=== PATIENT | female | born 1995 | race Caucasian/White ===

== ENCOUNTER → 2016-05-06 | Outpatient (CLI) | payer BC, MEDICAID | LOC: RAD 09:08 | PROVIDERS: ATTEND Family Medicine | DX: O26.843 Uterine size-date discrepancy, third trimester (principal); Z3A.32 32 weeks gestation of pregnancy | CPT/HCPCS: 76805 ==

== ENCOUNTER 2016-05-21 05:09 | Inpatient (IN) | payer BC, MEDICAID ==
[2016-05-21] VITALS (26 sets, daily range): BP systolic 95–126; BP diastolic 50–78
[~2016-05-21] VITALS: Ht 154.9 cm; Wt 50.0 kg
[2016-05-21] MEDS ORDERED: OXYTOCIN INJ 20 UNIT in NS 1000ml 1,000 ML IV PRN (05:16)
[2016-05-21] MEDS ORDERED: MISOPROSTOL 25 MCG (CYTOTEC) TABLET PV SCH (05:20)
[2016-05-21] MEDS ORDERED: SODIUM CHLORIDE FLUSH 10 ML SYR IV PRN (05:20)
--- OUTSIDE RECORDS SUMMARY | 2016-05-21 05:27 | XMS REPORT ---
Author Author Bhavya Everett Organization [employer] Address Unknown Phone Unavailable Care Team Providers Care Weather Anchor Name Role Phone Bhavya Everett CP Unavailable Allergies No Known Allergies Problems Problem Type Condition Code Onset Dates Condition Status Assessment Major depressive disorder, recurrent episode, moderate 296.32 Active Problem Major depressive disorder, recurrent episode, moderate 296.32 Active Medications No Known Medications Procedures Procedure Coding System Code Date ([facility]) Care coordination CARMEL CPT-4 S0281 June 13, 2014 Results No Known Results Summary Purpose [employer] Submission
[2016-05-21] MEDS: CALCIUM CARBONATE CHEWABLE 300 MG (TUMS) TABLET PO PRN ×2 (05:52→13:49)
[2016-05-21 05:56] LABS: MEAN CORPUSCULAR HEMOGLOBIN 28.5 PG (26.0-34.0); MEAN CORPUSCULAR HGB CONC 33.3 g/dL (31.0-37.0); MEAN PLATELET VOLUME 11.5 FL (6.0-9.5); WHITE BLOOD COUNT 11.72 10^3uL (4.0-11.0)
[2016-05-21] MEDS ORDERED: CALC300T4 PO (06:37)
[2016-05-21] MEDS ORDERED: PREN1TAB79 PO (06:37)
--- NOTE | 2016-05-21 08:30 | History and Physical (E) ---
History & Physical (OB) Subjective: CC: induction 21 year old at 37 0/7 WGA presents for induction secondary to IUGR. She was found to measure small at 34 week visit, and had an ultrasound that placed baby at the 2nd percentile. Follow up ultrasound earlier this week at Dr. Ng 's office showed weight at 5th percentile, and she recommended delivery at 37 weeks for IUGR. The has otherwise been complicated by history of asthma and migraines (no issue during this ) and chlamydia in the first trimester. PNC: Dr. Monge, then transfer to Dr. Malin at 18 weeks OB Hx: at 38 weeks PMHx: Asthma with no inhaler use for four years, migraines, IBS PSHx: FOB Jose. Works at [employer]. Tobacco use prior to preg, but not during. No alcohol or ILD. Allergies: Coded Allergies: nystatin (Verified Allergy, Unknown, 05/21/16) Home Medications: Reported Medications Calcium Carbonate (Tums)300 Mg Tab.[id number] Mg PO NEEDED 05/21/16 Vits W-Ca,Fe,Fa(<1MG) ( Vitamins)1 Each Tablet1 Each PO DAILY 05/21/16 Objective: Vital Signs Date Time Temp Pulse Resp B/P Pulse Ox O2 Delivery O2 Flow Rate FiO2 05/21/16 06:00 85 16 110/67 Laboratory Results Past 24 Hrs 05/21/16 05:30: Hematocrit 35.10, Hemoglobin 11.7, Mean Corpuscular Hemoglobin 28.5, Mean Corpuscular Hemoglobin Concent 33.3, Mean Corpuscular Volume 85, Mean Platelet Volume 11.5, Platelet Count 268, Red Blood Count 4.11, Red Cell Distribution Width 12.7, White Blood Count 11.72 General: Alert and oriented, NAD Chest: CTA Abdomen: Gravid Cardiovasular: RRR, No murmur Extremities: No edema FHT's: 130s, moderately reactive, no accels or decels. Cat I. Cx: 1.5/70/-3 vertex, head well applied Elnora: q4min Screenings: Blood type: O Positive, Rubella Immune, RPR non-reactive, HBV Negative, HIV Negative , GBS Negative. Problems/Plans: (1) with 37 weeks completed gestation Assessment & Plan: 1st dose of cytotec placed at 6am, with contractions getting started and effacement since check in the office yesterday. Will recheck at 10am, and pending that may do another dose of cytotec vs start pitocin. (2) IUGR (intrauterine growth restriction) (3) Asthma Assessment & Plan: Avoid hemabate. Additional Copies to: End of Report . AUSTIN MALIN MD May 21, 2016 08:30
[2016-05-21] MEDS ORDERED: OXYTOCIN INJ 20 UNIT in NS 1000ml 1,000 ML SCH (10:40)
[2016-05-21] MEDS ORDERED: OXYTOCIN INJ 20 UNIT in NS 1000ml 1,000 ML IV SCH (11:30)
[2016-05-21] MEDS ORDERED: ROPIVACAINE 1% 10 MG/ML (NAROPIN) 20 ML AMPUL ONE (12:42)
[2016-05-21 13:33] LABS: BILIRUBIN,URINE Negative (Negative); CLARITY,URINE Clear; COLOR,URINE Yellow; GLUCOSE, URINE (UA) Negative (Negative); LEUKOCYTE ESTERASE ,URINE Negative (Negative); UROBILINOGEN,URINE 0.2 mg/dL (0.2-1.0)
[2016-05-21] MEDS ORDERED: CALCIUM CARBONATE CHEWABLE 300 MG (TUMS) TABLET PO PRN (16:00)
[2016-05-21] MEDS ORDERED: LANOLIN OINTMENT 28 GM TUBE TOP PRN (17:30)
[2016-05-21] MEDS ORDERED: HYDROcodone/APAP 5 MG/325 MG (NORCO) TAB PO PRN (17:30)
--- NOTE | 2016-05-21 17:44 | Vaginal Delivery Summary (E) ---
Vaginal Delivery Summary At 17:02 on 05/21/16 this 21 year old G 2 now P2 spontaneously delivered a viable female at 37 0/7 weeks gestation. The patient presented for care at [address] Monge and ultrasound at that time established dates. She transferred care to mo at 18 weeks. This complications: IUGR, history of asthma and migraine, chlamydia in the first trimester. Maternal labs: Blood type: O Positive, Hgb 13.8, Rubella Immune, RPR non- reactive, HBV Negative, HIV Negative , GBS Negative. Tdap booster received on 2016. Flu booster received on 03/16/16. She presented for induction secondary to IUGR. At presentation, she was 1 cm dilated. A 25mcg dose of cytotec was placed, and she started to have contractions and slight advancement of dilation. Pitocin was then started, with max dose of 2mu. Epidural was placed at 12:40, with good pain relief. She progressed to complete at 16:50. I performed AROM with Allis clamp just as she started pushing with clear fluid returned. She pushed for approximately 1 minute. The head presented occiput anterior and delivered easily, followed by the anterior shoulder. A loose nuchal cord x1 was reduced. The posterior shoulder and the body followed in a controlled fashion and baby was placed on mom's abdomen. The placenta delivered immediately after baby. The cord was then clamped x2 by me and cut by father of the baby. The pitocin bag was run in. There were no lacerations. Estimated blood loss 50 ml. weight: 5 pounds, 1 ounces, 2310 grams. Apgars: 8 at 1 minute, 8 at 5 minutes, and 8 at 10 minutes. Baby's color was pale after delivery, so O2 sat was placed, and sats were 97-99 % with good respiratory effort and equal breath sounds. She likely has a low hematocrit contributing to her pale color as an effect of her IUGR. Will continue to monitor. Initial glucose is 64. Both mom and baby are stable at this time. AUSTIN BREWER MD May 21, 2016 17:44
[2016-05-21] MEDS: IBUPROFEN 600 MG (MOTRIN) TAB PO PRN (21:34)
[2016-05-21] MEDS: DOCUSATE SODIUM 100 MG (COLACE) CAP PO SCH (21:34)
[2016-05-22] MEDS: IBUPROFEN 600 MG (MOTRIN) TAB PO PRN ×2 (07:15→13:49)
--- NOTE | 2016-05-22 08:30 | NUR ---
Mother states that she plans feeing formula in hospital and pump once she is home. Encourage mother to start pumping while in the hospital to help her supply and can feed what she pumps to infant. Also encouraged mother to try again today. Mother set up with breast pump and educated on use.
[2016-05-22 08:53] VITALS: BP 122/80
--- NOTE | 2016-05-22 12:20 | Progress Note (E) ---
Post- Progress Note Subjective: Doing well. Some struggles with nursing, baby is not sucking well. Supplemented last night, but got a good feeding session this morning. Ambulating, voiding. Pain controlled. Lochia decreasing. Objective: Vital Signs Date Time Temp Pulse Resp B/P Pulse Ox O2 Delivery O2 Flow Rate FiO2 05/22/16 08:53 98.1 67 18 122/80 97 Room air I & O 05/21/16 05/22/16 18:59 06:59 Intake Total 118 ml Balance 118 ml Laboratory Tests 05/21/16 13:20: Urine Bilirubin Negative, Urine Blood Negative, Urine Clarity Clear, Urine Collection Type Catheter, Urine Color Yellow, Urine Glucose (UA) Negative, Urine Ketones 2+, Urine Leukocyte Esterase Negative, Urine Nitrite Negative, Urine Protein Negative, Urine Specific [place] 1.020, Urine Urobilinogen 0.2, Urine pH 7.0 05/22/16 07:10: Hematocrit 31.70, Hemoglobin 10.4 Blood type: O Positive, Current Medications Ibuprofen 600 mg Q6H PRN PO Last administered on 05/22/16 07:15; Admin Dose 600 MG; Start 05/21/16 at 17:30 Docusate Sodium 100 mg HS PO Last administered on 05/21/16 21:34; Admin Dose 100 MG; Start 05/21/16 at 21:00 Acetaminophen/ Hydrocodone Bitart 1-2 TABS Q4H PRN PO; Start 05/21/16 at 17:30 General: Alert and oriented, NAD Abdomen: Soft, non-distended, fundus firm Extremities: No edema Problems/Plans: (1) (spontaneous vaginal delivery) Assessment & Plan: Plan discharge tomorrow. Continue to work on nursing. AUSTIN BREWER MD May 22, 2016 12:20
[2016-05-22] MEDS ORDERED: IBUP-1772 PO (12:21)
[2016-05-22 20:00] VITALS: BP 110/70
--- NOTE | 2016-05-22 20:15 | NUR ---
Infant waking and displaying hunger cues. Discussed how feedings have gone since delivery and what her ultimate goal is for feeding. Reviewed each intervention applied so far and offered SNS as option to facilitate continued supply and demand. Pt and FOB expressed concern about lack of milk supply at this time. Reviewed colostrum and milk supply development as well as stomach size. Plan of care for infant feeding this shift: SNS with small amounts of formula while and encourage feedings every 2-3 hours. placed at breast and latched quickly. Feeding tube inserted into infant's mouth while nursing and 12 mls formula given (6mls each breast). As formula was taken quickly, reinforced the importance of letting her nurse a while longer at each breast to facilitate milk production. Both patient and father of baby very attentive and expressed understanding of and agreement with plan of care. Pleased with 's feeding ability at this time. Reinforced that nursing latch and suck coordination just takes time.
[2016-05-22] MEDS: DOCUSATE SODIUM 100 MG (COLACE) CAP PO SCH (20:58)
--- NOTE | 2016-05-23 02:00 | NUR ---
Requests bottle for baby. Encouraged her to try and breastfeed but she chooses not to at this time. FOB feeds baby. Both attentive to the baby but tired.
--- NOTE | 2016-05-23 04:00 | NUR ---
Requests bottle. Encourage to breastfeed but chooses not to at this time. Recommended she should pump but chooses not to at this time.
--- NOTE | 2016-05-23 05:30 | NUR ---
Requests bottle. Baby crying inconsolably. Asked if she had checked diaper nad tried to console her in was other than feeding. Diaper clean and dry. Does not calm with swaddling/soothing. I asked her what she would do if she were home (breastfeed or bottlefeed) and she said she wasn't sure. Told her she could nurse in sidelying position and agrees to try. Infant continues to cry and not latch but calms when allowed to suck on gloved finger. Mother expresses colostrum and formula ddripped on to nipple as well. Baby latches quickly following this. Reinforced we support her decision for feeding regardless but with , supply and demand principle is so important early in establishing milk supply.
[2016-05-23 08:50] VITALS: BP 116/72
--- NOTE | 2016-05-23 09:45 | NUR ---
Dr Petit, covering for Dr Malin, in patient room assessing patient and . Dismissal instruction and education provided by Dr Petit.
--- NOTE | 2016-05-23 10:05 | Discharge Summary (E) ---
OB Discharge Summary Admit Date/Time May 21, 2016 at 05:23 Discharge Date/Time 05/23/16 Admitting Provider Martha Malin MD Primary Care Provider Martha Malin MD Attending Provider Martha Malin MD Consulting Provider Dr Jody Petit Procedures Admission Diagnosis Term induction for IUGR History and Present Illness See History and Physical for complete details. Hospital Course and Treatment See delivery note. Pain very well controlled with occasional use of Ibuprofen only. Bleeding less than menses. Nursing fine, supplementing with formula currently. Feeling ready for discharge. Discharge Physicial Exam General Alert and oriented, NAD Abdomen Soft, non-distended, fundus firm and below umbilicus. Extremities No edema Discharge Disposition Home Instructions Labor and delivery instruction and instructions given as handouts. Diet Discharge Medications New Medications: Ibuprofen (Ibuprofen) 600 Mg Tablet 600 MG PO Q6H PRN PAIN #30 TAB Continued Medications: Vits W-Ca,Fe,Fa(<1MG) ( Vitamins) 1 Each Tablet 1 EACH PO DAILY TAB Discontinued Medications: Calcium Carbonate (Tums) 300 Mg Tab.chew 300 MG PO NEEDED TAB.CHEW Follow up Follow up Referrals: Family Practice - Within 6 weeks with Martha Malin Md Discharge Diagnosis Problems/Plans: (1) (spontaneous vaginal delivery) Assessment & Plan: Doing well. Discharge home. See orders. Continue to work on nursing. Copies to: End of Report . JODY PETIT MD May 23, 2016 10:05
--- NOTE | 2016-05-23 10:20 | NUR ---
Discharge instructions reviewed with patient and FOB. Patient denies any further questions. Education provided. Discharge papers signed.
--- NOTE | 2016-05-23 10:35 | NUR ---
Patient discharged ambulatory status accompanied by FOB, infant, and this nurse. Patient escorted to POV.
== END 2016-05-23 10:35 | disposition home or self-care (01) | DRG 775 ==
LOC: OB 05:23
PROVIDERS: ADMIT Family Medicine; ATTEND Family Medicine
PROC: 10E0XZZ Delivery of Products of Conception, External Approach (ICD-10-PCS; principal; 2016-05-21)
PROC: 3E0P7GC Introduction of Other Therapeutic Substance into Female Reproductive, Via Natural or Artificial Opening (ICD-10-PCS; 2016-05-21)
DX: O36.5930 Maternal care for other known or suspected poor fetal growth, third trimester, not applicable or unspecified (principal); Z37.0 Single live birth; Z3A.37 37 weeks gestation of pregnancy; O69.81X0 Labor and delivery complicated by cord around neck, without compression, not applicable or unspecified; O99.353 Diseases of the nervous system complicating pregnancy, third trimester; G43.909 Migraine, unspecified, not intractable, without status migrainosus; O99.513 Diseases of the respiratory system complicating pregnancy, third trimester; J45.909 Unspecified asthma, uncomplicated
CPT/HCPCS: 36415; 81003; 85014; 85018; 85027; 86850; 86900; 86901